=== PATIENT | male | born 1975 | race Caucasian/White ===

== ENCOUNTER 2020-11-01 19:45 | Emergency (ER) | payer BC ==
[~2020-11-01] VITALS: Ht 182.9 cm; Wt 94.0 kg
[2020-11-01 21:08] LABS: BASOPHIL % 0.7 % (0.2-1.5); PLATELET COUNT 197 x10^3mcL (152-348); RED CELL DISTRIBUTION WIDTH 13.6 % (12.1-16.2)
[2020-11-01 21:19] LABS: CALCIUM 9.1 mg/dL (8.5-10.1); CHLORIDE SERUM 105 mmol/L (98-107); GFR1 > 60 mL/min; GLUCOSE SERUM 107 mg/dL (74-106); POTASSIUM SERUM 3.5 mmol/L (3.5-5.1); SODIUM SERUM 141 mmol/L (136-145)
[2020-11-01 21:24] LABS: ALBUMIN 4.3 g/dL (3.4-5.0); ALKALINE PHOSPHATASE 87 U/L (46-116); ALT/SGPT 25 U/L (16-63); AST/SGOT 15 U/L (15-37); BILIRUBIN TOTAL 0.5 mg/dL (0.20-1.00); TOTAL PROTEIN, SERUM 7.6 g/dL (6.4-8.2)
[2020-11-02] MEDS ORDERED: ASPIRIN CHILDRE81 MG PO (00:17)
[2020-11-02 01:11] VITALS: BP 122/78
== END 2020-11-02 01:11 | disposition home or self-care (01) ==
LOC: ED 19:45
DX: R00.2 Palpitations (principal); R07.89 Other chest pain